=== PATIENT | female | born 1970 | race Caucasian/White ===

== ENCOUNTER 2016-12-19 07:28 | Outpatient (CLI) | payer BC, OTHER ==
--- NOTE | 2016-12-19 09:39 | MRI ---
MRI OF LUMBAR SPINE 12/19/16 PROVIDED CLINICAL HISTORY: Lumbar radiculopathy. FINDINGS: Evaluation is limited by patient motion. Five lumbar vertebral bodies are assumed. Lumbar alignment appears normal. Vertebral body heights ap pear preserved. End plate marrow edema is seen at the superior end plate of S1 and inferior end plat e of L5 presumably on the basis of Modic type I change. No focal concerning regional marrow signal a bnormality is apparent. The conus medullaris is normal in signal and terminates at an appropriate le liz. The extraspinal soft tissues are not well evaluated on this examination due to motion. At L1-2, there is no significant central canal or foraminal narrowing apparent. At L2-3, there is no significant central canal or foraminal narrowing apparent. At L3-4, there is a broad based disc bulge and bilateral facet arthritis. There is a small annular t ear suspected involving the dorsal disc margin. There is mild central canal stenosis. There is no si gnificant foraminal narrowing apparent. At L4-5, there is a broad based disc bulge and bilateral facet arthritis. There is a annular tear in volving the dorsal disc margin. There is mild-moderate central canal stenosis and mild bilateral for aminal narrowing suspected. At L5-S1, there is a large primarily central disc extrusion which produces severe central canal sten osis with near obliteration of the spinal canal. This produces mass effect on the traversing nerve r oots. There is bilateral facet arthritis. A broad based disc bulge upon which the herniation is supe rimposed and the facet arthritis results in bilateral mild foraminal narrowing. IMPRESSION: 1. Large disc extrusion at L5-S1 with severe central canal narrowing. 2. Limited study due to patient motion. 3. Disc and facet degenerative changes as described above. POS: [facility]
== END 2016-12-19 07:29 | disposition home or self-care (01) ==
LOC: MRI 07:28
PROVIDERS: ATTEND Family Medicine
DX: M47.26 Other spondylosis with radiculopathy, lumbar region (principal); M48.061 Spinal stenosis, lumbar region without neurogenic claudication
CPT/HCPCS: 72148

== ENCOUNTER 2016-12-25 16:08 | Outpatient (CLI) | payer BC, OTHER ==
--- NOTE | 2016-12-25 20:05 | RAD ---
LEFT HIP TWO VIEWS: 12/25/16 HISTORY: 46-year-old female with left hip pain and lumbar radiculopathy with leg pain. Mild left hip joint arthrosis. No acute fracture or dislocation. IMPRESSION: No fracture or dislocation. Mild degenerative changes left hip joint. POS: [facility]
== END 2016-12-25 16:09 | disposition home or self-care (01) ==
LOC: RAD 16:08
PROVIDERS: ATTEND Family Medicine
DX: M54.10 Radiculopathy, site unspecified (principal); M16.12 Unilateral primary osteoarthritis, left hip

== ENCOUNTER 2019-03-16 11:13 | Emergency (ER) | payer BC, OTHER ==
[2019-03-16 12:04] LABS: #Basophils 0.1 thou/uL (0.0-0.2); #Eosinphils 0.2 thou/uL (0.0-0.7); #Lymphocytes 3.1 thou/uL (1.20-3.40); #Monocytes 0.6 thou/uL (0.11-0.59); #Neutrophils 4.2 thou/uL (1.40-6.50); %Basophils 1.1 % (0.0-1.0); %Eosinophils 2.5 % (0.0-10.0); %Lymphocytes 37.3 % (21.0-51.0); %Monocytes 7.7 % (0.0-10.0); %Neutrophils 51.4 % (42.0-75.0); Hemoglobin 14.9 g/dL (12.0-16.0); Mean Corpuscular HGB CONC 34.2 g/dL (32.0-36.0); Mean Corpuscular Hemoglobin 32.2 pg (27.0-31.0); Mean Corpuscular Volume 94.1 fL (78.0-98.0); Platelet Count 378 thou/uL (130-400); RBC Distribution Width 11.3 % (11.5-14.5); Red Blood Cell (RBC) Count 4.64 mill/uL (4.20-5.40); White Blood Cell (WBC) Count 8.2 thou/uL (4.8-10.8)
[2019-03-16 12:32] LABS: ALT (SGPT) 21 U/L (8-55); AST (SGOT) 16 U/L (5-34); Albumin 4.5 g/dL (3.5-5.0); Alkaline Phosphatase 57 U/L (40-110); Anion Gap 10 mmol/L (10-20); BUN (Urea Nitrogen) 12 mg/dL (7.0-18.7); Bilirubin, Total 0.4 mg/dL (0.2-1.2); Calc. Creatinine Clearance 0 mL/min (70-130); Calcium 9.4 mg/dL (7.8-10.44); Carbon Dioxide 29 mmol/L (22-29); Chloride 108 mmol/L (98-107); Estimated GFR-MDRD 77; Globulin 2.4 g/dL (2.4-3.5); Glucose 111 mg/dL (70-105); Lipase 38 U/L (8-78); Potassium 4.4 mmol/L (3.5-5.1); Protein, Total 6.9 g/dL (6.0-8.3); Sodium 143 mmol/L (136-145)
--- NOTE | 2019-03-16 13:28 | CT ---
CT Abdomen Pelvis W Con: 03/16/2019 12:34 PM CLINICAL INFORMATION: Left upper quadrant abdominal pain with nausea, vomiting, and fever COMPARISON: 07/31/2009 TECHNIQUE: Multiple contiguous axial images were obtained and a CT of the abdomen and pelvis with IV contrast. C oronal and sagittal reformats were performed. FINDINGS: Lower Chest: within normal limits. Abdomen: Liver: within normal limits. Bile Ducts: Normal caliber. Gallbladder: No calcified gallstones. Normal caliber wall. Pancreas: within normal limits. Spleen: within normal limits. Adrenals: within normal limits. Kidneys: within normal limits. Pelvis: Reproductive Organs: No pelvic masses. Ureters: within normal limits. Bladder: within normal limits. Peritoneum: No ascites or free air, no fluid collection. Bowel: Normal caliber. Mesentery and Retroperitoneum: No enlarged mesenteric or retroperitoneal lymph nodes. Vessels: Normal. Abdominal Wall: within normal limits. Bones: Within normal limits IMPRESSION: No evidence of acute intraabdominal or pelvic abnormality.
[2019-03-16] MEDS ORDERED: Iopamidol-370 76% 500 ML 1 ML ONE (13:32)
[2019-03-16 14:30] LABS: Bacteria/HPF None Seen HPF (None Seen); Bilirubin Negative (Negative); Blood, Urine Negative (Negative); Clarity Clear (Clear); Glucose, Urine (Dipstick) Normal (Negative); Leukocyte 75 Leu/uL (Negative); Nitrite Negative (Negative); Protein, Urine (Dipstick) Negative (Neg-Trace); RBC/HPF 0-3 HPF (0-3); Squamous Epithelial 0-3 HPF (0-3); Urobilinogen Normal mg/dL (Less than 2)
== END 2019-03-16 15:30 | disposition home or self-care (01) ==
LOC: ERS 11:13
DX: R10.12 Left upper quadrant pain (principal); N39.0 Urinary tract infection, site not specified; I10 Essential (primary) hypertension; E11.9 Type 2 diabetes mellitus without complications; E78.5 Hyperlipidemia, unspecified; F17.210 Nicotine dependence, cigarettes, uncomplicated
CPT/HCPCS: 36415; 74177; 80053; 81003; 81015; 82274; 83690; 85025; 87077; 87086; Q9967

== ENCOUNTER 2019-05-07 16:56 | Emergency (ER) | payer BC, OTHER ==
[~2019-05-07 16:56] MED LIST: Iopamidol-370 76% 500 ML 1 ML ONE
[2019-05-07 17:30] LABS: #Basophils 0.1 thou/uL (0.0-0.2); #Eosinphils 0.1 thou/uL (0.0-0.7); #Lymphocytes 2.9 thou/uL (1.20-3.40); #Monocytes 0.5 thou/uL (0.11-0.59); #Neutrophils 4.1 thou/uL (1.40-6.50); %Basophils 0.7 % (0.0-1.0); %Eosinophils 1.7 % (0.0-10.0); %Lymphocytes 38.1 % (21.0-51.0); %Monocytes 6.7 % (0.0-10.0); %Neutrophils 52.9 % (42.0-75.0); Hemoglobin 15.3 g/dL (12.0-16.0); Mean Corpuscular HGB CONC 34.1 g/dL (32.0-36.0); Mean Corpuscular Hemoglobin 32.4 pg (27.0-31.0); Mean Platelet Volume 7.1 fL (7.4-10.4); Platelet Count 394 thou/uL (130-400); RBC Distribution Width 11.6 % (11.5-14.5); Red Blood Cell (RBC) Count 4.72 mill/uL (4.20-5.40); White Blood Cell (WBC) Count 7.7 thou/uL (4.8-10.8)
[2019-05-07 17:52] LABS: ALT (SGPT) 22 U/L (8-55); AST (SGOT) 16 U/L (5-34); Albumin 4.7 g/dL (3.5-5.0); Alkaline Phosphatase 61 U/L (40-110); Anion Gap 14 mmol/L (10-20); BUN (Urea Nitrogen) 13 mg/dL (7.0-18.7); Bilirubin, Total 0.4 mg/dL (0.2-1.2); Calc. Creatinine Clearance 0 mL/min (70-130); Calcium 10.3 mg/dL (7.8-10.44); Carbon Dioxide 28 mmol/L (22-29); Chloride 105 mmol/L (98-107); Estimated GFR-MDRD 70; Globulin 2.6 g/dL (2.4-3.5); Glucose 112 mg/dL (70-105); Lipase 53 U/L (8-78); Potassium 4.5 mmol/L (3.5-5.1); Protein, Total 7.3 g/dL (6.0-8.3); Sodium 142 mmol/L (136-145)
[2019-05-07 18:01] LABS: Bilirubin Negative (Negative); Blood, Urine Negative (Negative); Clarity Clear (Clear); Glucose, Urine (Dipstick) Normal (Negative); Leukocyte Negative Leu/uL (Negative); Nitrite Negative (Negative); Protein, Urine (Dipstick) Negative (Neg-Trace); Urobilinogen Normal mg/dL (Less than 2)
[2019-05-07 18:07] LABS: Pregnancy Test - Urine (BHCG) Negative (Negative); Pregu Control Background? CLEAR/WHITE (CLR/WHITE); Pregu Control Bar Appear? YES (CONTROL BAR); Specific Gravity 1.021 (1.002-1.036)
[2019-05-07] MEDS ORDERED: Ondansetron PF 4 MG/2 ML Vial ONE (20:25)
[2019-05-07] MEDS ORDERED: Famotidine/PF 20 mg/2ml Vial ONE (20:25)
[2019-05-07] MEDS ORDERED: diphenhydrAMINE 50 MG/ML VIAL ONE (20:25)
[2019-05-07] MEDS ORDERED: methylPREDNISolone Sod Succ 40 MG VIAL ONE (20:25)
--- NOTE | 2019-05-07 21:22 | CT ---
CT OF THE ABDOMEN AND PELVIS WITH IV CONTRAST INDICATION: 40-year-old female with lower abdominal pain for 2 days COMPARISON: March 16, 2019 FINDINGS: ABDOMEN: Lung bases: Clear Liver: No focal lesion. Gallbladder: Normal appearing. Pancreas: Normal. Adrenal glands: Normal. Spleen: Normal. Kidneys and ureters: Normal. No hydronephrosis. Vasculature: There are mild vascular calcifications seen involving the visualized vasculature. Lymph nodes:No lymphadenopathy. Free fluid in abdomen:No free fluid is evident. PELVIS: Small and large bowel: Normal Appendix:Not visualized Bladder: Normal. Rectal and perirectal soft tissues:Normal. Reproductive structures: Normal. Free fluid in pelvis: No free fluid is evident. Lymphadenopathy pelvis: No lymphadenopathy is evident. Osseous structures: No acute osseous abnormality. No destructive osteolytic or osteoblastic lesion i s identified. There is scattered degenerative and osteoarthritic changes. Soft tissues:Normal. IMPRESSION: 1. No acute abnormality.
== END 2019-05-07 23:11 | disposition home or self-care (01) ==
LOC: ERS 16:56
DX: R10.9 Unspecified abdominal pain (principal); R11.0 Nausea; I10 Essential (primary) hypertension; E11.9 Type 2 diabetes mellitus without complications; E78.5 Hyperlipidemia, unspecified; F17.210 Nicotine dependence, cigarettes, uncomplicated; Z79.84 Long term (current) use of oral hypoglycemic drugs; Z79.899 Other long term (current) drug therapy
CPT/HCPCS: 36415; 74177; 80053; 81003; 81025; 83690; 85025; 96361; 96374; 96375; J1200; J2405; J2920; S0028